=== PATIENT | female | born 1950 | race Hispanic/Latino ===

== ENCOUNTER 2018-10-18 18:55 | Emergency (ER) | payer MEDICARE ==
[~2018-10-18] VITALS: Ht 149.9 cm; Wt 63.5 kg
--- OUTSIDE RECORDS SUMMARY | 2018-10-18 18:57 | XMS REPORT ---
Author [facility] Address Unknown Phone Unavailable Care Team Providers Care [employer] Name Role Phone Unavailable Unavailable Payers Payer Name Policy Type Policy Number Effective Date Expiration Date Problems This patient has no known problems. Allergies, Adverse Reactions, Alerts Allergy Name Allergy Type Status Severity Reaction(s) Onset Date Inactive Date Treating Clinician Comments No Known Allergies DA Active U 2018-10-16 00:00:00 Medications This patient has no known medications. Results Test Description Test Time Test Comments Text Results Atomic Results Result Comments - CTA CHEST 2018-10-16 22:50:00 Name: JEAN DUNLAP [facility] : 1950 Age/S: 67 / F [address] [facility] Unit #: [id number] Loc: [place] [address] Phys: Bradley Norris MD Acct: [id number] Dis Date: Status: [facility] PHONE #: [phone] Exam Date: 10/16/20182236 FAX #: [phone] Reason: elevated dimer EXAMS: CPT CODE: [id number] CTA CHEST 95875 HISTORY: Elevated d-dimer. COMPARISON: None available. CTA CHEST: 3-D images. 100 mL of Isovue-370. Automated exposure control. No pulmonary embolism. Unremarkable aorta and SVC. Suboptimally opacified neck vasculature is limited in evaluation. Unremarkable thyroid glands. Esophageal wall is mildly thickened likely from underdistention. No pathologic adenopathy. Cardiac silhouette is mildly enlarged without pericardial effusion. Visualized upper abdomen is unremarkable albeit limited by motion. Hyperplastic left adrenal. Subcutaneous tissues and the musculature are normal in appearance. No lytic or blastic lesions are noted within the bony skeleton. DJD. The lungs are clear of infiltrates, effusion or congestion. Calcified granuloma in the left upper lobe/lingula. D ependent changes. No bronchiectasis, honeycombing or fibrosis. No mass or nodules. IMPRESSION: No pulmonary embolism. Unremarkable aorta. The lungs are clear with dependent changes. at 2250 Reported and signed by: Serjio Arndt M.D. CC: Marco Norris MD Technologist:Jamil Toribio, RT(R)(CT); ... CTDI: DLP: Trnscb Date/Time: 10/16/2018 (2249) [email or web address] Orig Print D/T: S: 10/16/2018 (2651) PAGE 1 Signed Report B-TYPE NATRIURETIC PEPTIDE 2018-10-16 22:33:00 B-TYPE NATRIURETIC PEPTIDE (test code=BNP) 50.46 pgram/mL 0-100 BASIC METABOLIC [id number] 22:08:00* Test Item Value Reference Range Comments SODIUM (test code=NA) 128 mmol/L 136-145 POTASSIUM (test code=K) 3.9 mmol/L 3.5-5.1 CHLORIDE (test code=CL) 95.0 mmol/L 98-107 CARBON DIOXIDE (test code=CO2) 23.0 mmol/L 21-32 ANION GAP (test code=GAP) 13.9 10-20 GLUCOSE (test code=GLU) 276 mg/dL 74-106 BLOOD UREA NITROGEN (test code=BUN) 12 mg/dL 7-18 GLOMERULAR FILTRATION RATE (test code=GFR) 55 mL/min >=60 Estimated GFR by using Modified MDRD formula.Chronic kidney disease is defined as either kidney damageor GFR <60 mL/min/1.73 m2 for >3 months. CREATININE (test code=CREAT) 1.00 mg/dL 0.55-1.02 Note change in reference range due to change in reagent. BUN/CREATININE RATIO (test code=BUN/CREA) 12.0 10-20 CALCIUM (test code=CA) 8.6 mg/dL 8.5-10.1 [id number] 22:08:00* Test Item Value Reference Range Comments TROPONIN-I (test code=TROPI) <0.015 ng/mL 0-0.045 [id number] 21:52:00* Test Item Value Reference Range Comments D-DIMER (test code=DDIMER) 1624.00 ng/mLFEU 0-500 Results called to [id number]/ANGI by [email or web address] 10/16/18 2152Critical results verified and read back by Nurse? YClinical Cut-off value for D-Dimer is 500 ng/mL FEU. Comment: The [employer] D- Dimer assay is intended for use asan aid in the diagnosis of venous thromboembolism (VTE)[deep vein thrombosis (DVT) or pulmonary embolism (PE)].The measurement of D-Dimer should not be used as an aid inthe diagnosis of VTE, in patient with: -Therapeutic dose anticoagulant therapy for >24 hours - Fibrinolytic therapy within previous 7 days -Trauma or surgery within previous 4 weeks -Disseminated malignancies -Aortic aneurysm -Sepsis, severe infections, pneumonia, severe skin infections -Liver cirrhosis - BASIC METABOLIC [id number] 21:44:00* Test Item Value Reference Range Comments SODIUM (test code=NA) 128 mmol/L 136-145 POTASSIUM (test code=K) 3.9 mmol/L 3.5-5.1 CHLORIDE (test code=CL) 95.0 mmol/L 98-107 CARBON DIOXIDE (test code=CO2) mmol/L 21-32 ANION GAP (test code=GAP) 10-20 GLUCOSE (test code=GLU) mg/dL 74-106 BLOOD UREA NITROGEN (test code=BUN) mg/dL 7-18 GLOMERULAR FILTRATION RATE (test code=GFR) mL/min >=60 CREATININE (test code=CREAT) mg/dL 0.55-1.02 BUN/CREATININE RATIO (test code=BUN/CREA) 10-20 CALCIUM (test code=CA) mg/dL 8.5-10.1 [id number] 21:44:00* Test Item Value Reference Range Comments TROPONIN-I (test code=TROPI) ng/mL 0-0.045 - XR CHEST 1 [id number] 21:34:00 FAX: Bradley Norris MD [phone] [place]: [address] St: REG Name: JEAN DHILLON [facility] : [birth year] Age/S: 67/F [address] [facility] Unit #: [id number] Loc: [place] [address] Phys: Bradley Norris MD Acct: [id number] Dis Date: Status: REG ER PHONE #: [phone] Exam Date: 10/16/20182129 FAX #: [phone] Reason: Shortness of Breath EXAMS: CPT CODE: [id number] XR CHEST 1 V 55858 HISTORY: Fever. COMP ARISON: None available. No acute infiltrates, effusion or congesti on is noted. Mild cardiomegaly. IMPRESSION: No acute infiltrates, effusion or congestion. at 2134 Report ed and signed by: Serjio Arndt M.D. CC: Rosy Norris MD Technologist: CHUNG OSPINA RT(R) Trnscrd Date/Time/By: 10/16/2018 (2133) : By: [email or web address] Orig Print D/T: S: 10/16/2018 (2136) PAGE 1 Signed Report CBC W/O [id number] 21:33:00* Test Item Value Reference Range Comments WHITE BLOOD CELL (test code=WBC) 6.8 K/mm3 4.5-12.5 RED BLOOD CELL (test code=RBC) 5.24 mill/mm3 3.7-5.2 HEMOGLOBIN (test code=HGB) 14.5 gram/dL 11.5-15.5 HEMATOCRIT (test code=HCT) 43.0 % 36.0-46.0 MEAN CELL VOLUME (test code=MCV) 82.1 fL 80-98 MEAN CELL HGB (test code=MCH) 27.7 picogram 27.0-33.0 MEAN CELL HGB CONCETRATION (test code=MCHC) 33.7 gram/dL 33.0-36.0 RED CELL DISTRIBUTION WIDTH (test code=RDW) 12.1 % 11.6-16.2 PLATELET COUNT (test code=PLT) 180 K/mm3 150-450 MEAN PLATELET VOLUME (test code=MPV) 10.7 fL 6.7-11.0 CBC W/O [id number] 21:30:00* Test Item Value Reference Range Comments WHITE BLOOD CELL (test code=WBC) K/mm3 4.5-12.5 RED BLOOD CELL (test code=RBC) mill/mm3 3.7-5.2 HEMOGLOBIN (test code=HGB) 14.5 gram/dL 11.5-15.5 HEMATOCRIT (test code=HCT) 43.0 % 36.0-46.0 MEAN CELL VOLUME (test code=MCV) fL 80-98 MEAN CELL HGB (test code=MCH) picogram 27.0-33.0 MEAN CELL HGB CONCETRATION (test code=MCHC) gram/dL 33.0-36.0 RED CELL DISTRIBUTION WIDTH (test code=RDW) % 11.6-16.2 PLATELET COUNT (test code=PLT) K/mm3 150-450 MEAN PLATELET VOLUME (test code=MPV) fL 6.7-11.0
[2018-10-18] MEDS ORDERED: SODIUM CHLORIDE 0.9% 1000ML 1,000 ML IV SCH (19:15)
[2018-10-18] MEDS ORDERED: SODIUM CHLORIDE 0.9% 1000ML 1,000 ML ONE (19:41)
--- NOTE | 2018-10-18 19:55 | Diagnostic Imaging Report ---
EXAMINATION: CXR 2 VIEW - HOPD INDICATION: Weakness COMPARISON: None FINDINGS: AP view TUBES and LINES: None. LUNGS/PLEURA: The lungs are clear. No pleural effusion or pneumothorax. HEART AND MEDIASTINUM: The cardiomediastinal silhouette is unremarkable. BONES AND SOFT TISSUES: No acute osseous lesion. Soft tissues are unremarkable. UPPER ABDOMEN: No free air under the diaphragm. IMPRESSION: No acute thoracic abnormality. Signed by: Juan Ramon Oviedo MD on 10/18/2018 7:52 PM
[2018-10-18 20:44] VITALS: BP 118/74
[2018-10-18] MEDS ORDERED: TESSALON PERLE100 MG PO (20:49)
[2018-10-18] MEDS ORDERED: AZITHROMYCIN250 MG PO (20:49)
== END 2018-10-18 20:53 | disposition home or self-care (01) ==
LOC: FSED 18:55
DX: R50.9 Fever, unspecified (principal); R05 Cough; J20.9 Acute bronchitis, unspecified; R94.31 Abnormal electrocardiogram [ECG] [EKG]
CPT/HCPCS: 36415; 71046; 80053; 81003; 82553; 82948; 84484; 85025; 93005; 99284; J7030

== ENCOUNTER 2020-10-03 10:08 | Emergency (ER) | payer MEDICARE ==
[~2020-10-03] VITALS: Ht 149.9 cm; Wt 82.6 kg
[~2020-10-03 10:08] MED LIST: AZITHROMYCIN250 MG PO; TESSALON PERLE100 MG PO
[2020-10-03] MEDS ORDERED: CEFTRIAXONE 1 GM VIAL IM ONE (11:15)
[2020-10-03] MEDS: SODIUM CHLORIDE 0.9% 1000ML 1,000 ML IV SCH ×2 (11:20→11:25)
[2020-10-03] MEDS ORDERED: CEFTRIAXONE 1 GM VIAL IV ONE (11:30)
[2020-10-03] MEDS ORDERED: ONDANSETRON HCL 4 MG ORAL DISINTEGRATING TAB ONE (11:33)
[2020-10-03] MEDS ORDERED: SODIUM CHLORIDE 0.9% 1000ML 1,000 ML ONE (11:33)
[2020-10-03] MEDS ORDERED: CEFTRIAXONE 1 GM VIAL ONE (11:33)
[2020-10-03] MEDS ORDERED: CEFTRIAXONE 1 GM in SODIUM CHLORIDE 0.9% 50ML 50 ML IV ONE (11:45)
[2020-10-03] MEDS ORDERED: CEFDINIR300 MG PO (12:05)
== END 2020-10-03 12:20 | disposition home or self-care (01) ==
LOC: FSED 10:18
DX: R30.0 Dysuria (principal); N39.0 Urinary tract infection, site not specified; E11.65 Type 2 diabetes mellitus with hyperglycemia; N28.9 Disorder of kidney and ureter, unspecified; D64.9 Anemia, unspecified; R53.83 Other fatigue; I10 Essential (primary) hypertension; E78.5 Hyperlipidemia, unspecified
CPT/HCPCS: 81003; 87086; 87186; 99283; J0696; J7030; Q0162